=== PATIENT | female | born 1960 | race Caucasian/White ===

== ENCOUNTER 2023-09-20 10:04 | Outpatient (CLI) | payer OTHER, SELFPAY | END 2023-09-20 10:05 | disposition home or self-care (01) | LOC: SPT 10:04 | PROVIDERS: Visit Provider Podiatrist Foot & Ankle Surgery | DX: Z46.89 Encounter for fitting and adjustment of other specified devices (principal); M79.671 Pain in right foot; M79.672 Pain in left foot | CPT/HCPCS: L3030 ==